=== PATIENT | female | born 1975 | race African-American/Black ===

== ENCOUNTER 2017-06-21 08:52 | Emergency (ER) | payer OTHER ==
[~2017-06-21] VITALS: Ht 182.9 cm; Wt 140.0 kg
[~2017-06-21 08:52] MED LIST: ALDA50TA PO; GLUCTAB PO; LISI-366 PO; LOW-TAB2 PO; SIMV10TA PO
[2017-06-21 08:54] VITALS: BP 130/84; PULSE 84; RESP 20; TEMP 97.9; O2SAT 97
[2017-06-21] MEDS ORDERED: ALDA50TA PO (09:41)
[2017-06-21] MEDS ORDERED: SIMV10TA PO (09:41)
[2017-06-21] MEDS ORDERED: LISI40TA PO (09:41)
[2017-06-21] MEDS ORDERED: METF500T PO (09:42)
[2017-06-21] MEDS ORDERED: KETOROLAC TROMETHAMINE 60 MG/2 ML (IM) VIAL IM ONE (09:45)
[2017-06-21] MEDS ORDERED: IBUP800T23 PO (09:48)
--- NOTE | 2017-06-21 09:49 | PD ---
HPI Chief Complaint: Skin Problem Time Seen by Provider: 09:38 Travel History International Travel<30 days: No Contact w/Intl Traveler<30days: No Traveled to known affect area: No History of Present Illness HPI 42-year-old female presents emergency Department with multiple complaints. First complaint is bilateral leg cramping that occurred last night causing the patient extreme pain that she was unable to ambulate. Has history of bilateral leg cramping that is continuous. The pain did subside and the cramping is as usual at this time. She also noticed a little red dots to bilateral lower extremities this morning when she was applying lotion to his legs. Says she never applies lotion to her lower legs and doesn't know how long the little red dots has been there. Denies paresthesias, loss of sensation, decreased range of motion, decreased strength to bilateral lower extremities. Thinks the pain may be related to any medication that she is taking for her diabetes that she started taking 2 weeks ago. Thinks that medication is glipizide, but cannot recall. Reports headache 2 days located above her right eye. Headache gradually onset. Reports feeling nauseated yesterday without vomiting. Rates the headache 610. Describes it as an aching sensation. Says her headache may be related to her menses and she has also had nasal congestion for the past 2-3 days. Denies focal deficits or weakness. Denies confusion, disorientation, change in mentation. Denies fever. Has taken Aleve last night for symptom management. Has no other medical complaints. Allergies to corticosteroids, Lortabs. No other modifying factors or associated signs and symptoms. PFSH Past Medical History Cancer: No Diabetes: Yes (TYPE 2 ) Diminished Hearing: No Glaucoma: No Hepatitis: No Hiatal Hernia: No Hypertension: Yes Thyroid Disease: No Past Surgical History Abdominal Surgery: Yes () Section: Yes Pacemaker: No Social History Alcohol Use: No Tobacco Use: No Substance Use: No Allergies-Medications (Allergen,Severity, Reaction): Coded Allergies: Corticosteroids (Verified Allergy, Severe, ITCHING/BREAKOUT, 06/21/17) Lortab (Verified Allergy, Severe, ITCHING, HIVES, 06/21/17) Uncoded Allergies: STEROIDS (Allergy, Severe, ITCHING/BREAKOUT, 09/07/08) Reported Meds & Prescriptions Reported Meds & Active Scripts Active Ibuprofen 800 Mg Tab 800 Mg PO Q6HR PRN Reported Metformin (Metformin HCl) 500 Mg Tab 500 Mg PO BIDPC With meals Simvastatin 10 Mg Tab 10 Mg PO DAILY Lisinopril 40 Mg Tab 40 Mg PO DAILY Aldactazide (Spironolactone-Hydrochlorothiazide) 50-50 Mg Tab 1 Tab PO DAILY Review of Systems Except as stated in HPI: all other systems reviewed are Neg Physical Exam Narrative GENERAL: Well-nourished, well-developed female patient, in no acute distress; afebrile, nontoxic-appearing SKIN: Warm and dry. Multiple pinpoint, nonblanching, red dots noted to bilateral lower legs. HEAD: Atraumatic. Normocephalic. No facial droop noted. Tongue midline. EYES: Pupils equal and round at 3 mm with brisk reaction. No scleral icterus. No injection or drainage. PERRLA. EOMI. ENT: Mucosa pink and moist. Airway patent. NECK: Trachea midline. No lymphadenopathy. CARDIOVASCULAR: Regular rate. RESPIRATORY: No accessory muscle use. GASTROINTESTINAL: Obese. MUSCULOSKELETAL: Bilateral lower extremities are supple and non-tense with 2+ pedal pulses and sensory intact and without erythema or edema. No obvious deformities. No clubbing. No cyanosis. No edema. NEUROLOGICAL: Awake and alert. Oriented 3. No obvious cranial nerve deficits. Motor grossly within normal limits. Normal speech. No ataxia. No mid -line drift. Moves all extremities. 5/5 strength to all extremities. PSYCHIATRIC: Appropriate mood and affect; insight and judgment normal. Data Data Last Documented VS Vital Signs Date Time Temp Pulse Resp B/P Pulse Ox O2 Delivery O2 Flow Rate FiO2 06/21/17 08:54 97.9 84 20 130/84 97 Room Air Orders Ketorolac Inj (Toradol Inj) (06/21/17 09:45) [facility] Medical Decision Making Medical Screen Exam Complete: Yes Emergency Medical Condition: Yes Medical Record Reviewed: Yes Differential Diagnosis Leg cramps, acute headache, sinus headache, petechial rash, less likely DVT Narrative Course 42-year-old female with bilateral lower leg cramps, acute headache, and bilateral lower legs with petechial rash. Bilateral lower extremities are supple and non-tense with 2+ pedal pulses and sensory intact. Neuro exam is unremarkable. Headache possibly related to sinus pressure secondary to reported nasal congestion 2-[address] scan of the head with the patient and she agrees it is not necessary at this time. I do not suspect DVT of bilateral lower extremities and feel that ultrasound is not necessary at this time. Using wells criteria the patient is Low risk group for DVT and DVT is Unlikely according to Wells DVT studies. Discussed reasons to return to the emergency department and she verbalized understanding and agreement. Toradol administered in the ER. 1028: Patient reports improvement in symptoms and decreased headache. Instructed patient to follow up with primary care provider. Patient verbalizes understanding and agreement with treatment plan. Patient is medically cleared and stable for discharge. Discussed reasons to return to the emergency department. Patient agrees with treatment plan. The patients vital signs are stable and the patient is stable for outpatient follow-up and treatment. Patient discharged home, stable and in no acute distress. Diagnosis Primary Impression: Bilateral leg cramps Additional Impressions: Headache Qualified Code: R51 - Nonintractable headache, unspecified chronicity pattern , unspecified headache type Petechial rash Referrals: Primary Care Physician Patient Instructions: Acute Headache (ED), General Instructions, Leg Cramps (ED ) Additional Instructions: Ibuprofen or Tylenol as directed and as needed to reduce headache Get plenty of rest: do not over sleep [id number] antihistamines or decongestants as directed and as needed for symptom management Follow-up with primary care provider within 1-2 days Return immediately to the emergency department with worsening symptoms, particularly as discussed Med/Other Pt SpecificInfo: Prescription(s) given Scripts Ibuprofen 800 Mg [id number] Mg PO Q6HR PRN (PAIN) #30 TAB Ref 0 Prov:Christina Pisano 06/21/17 Disposition: 01 DISCHARGE HOME Condition: Stable Christina Pisano Jun 21, 2017 09:49 Christina Pisano Jun 21, 2017 09:49
== END 2017-06-21 10:40 | disposition home or self-care (01) ==
LOC: NEPK 08:52
DX: R25.2 Cramp and spasm (principal); R23.3 Spontaneous ecchymoses; I10 Essential (primary) hypertension; E11.9 Type 2 diabetes mellitus without complications; Z79.84 Long term (current) use of oral hypoglycemic drugs
CPT/HCPCS: 99284; J1885